=== PATIENT | female | born 1990 | race African-American/Black ===

== ENCOUNTER 2017-05-24 10:02 | Emergency (ER) | payer BC ==
[~2017-05-24] VITALS: Ht 149.9 cm; Wt 49.8 kg
[2017-05-24 11:09] LABS: HEMATOCRIT 39.6 % (36.0-46.0); MCH 24.5 PG (29.0-34.0); MCHC 30.6 G/DL (30.0-36.0); MCV 80.2 FL (83-99); PLATELET COUNT 340 K/uL (156-360); RBC DIS.WIDTH-CV 17.9 % (11.8-14.6); RBC DIS.WIDTH-SD 51.8 % (39-53); RED BLOOD COUNT 4.94 M/uL (3.80-5.20); WHITE BLOOD COUNT 4.1 K/uL (4.1-10.2)
[2017-05-24 11:22] LABS: CHLORIDE 102 mEq/L (99-109); POTASSIUM 3.6 mEq/L (3.7-5.4); SODIUM 138 mEq/L (136-147)
[2017-05-24 11:24] LABS: GLUCOSE 96 mg/dL (70-99)
[2017-05-24 11:26] LABS: ANION GAP 10 MEQ/L (2-14)
[2017-05-24 11:28] LABS: GFR ESTIMATE (CALCULATED) > 59 mL/min/; UREA NITROGEN (BUN) 5 mg/dL (9-23)
[2017-05-24 11:30] LABS: TROP-I INTERPRETATION NEGATIVE; TROPONIN-I < 0.01 ng/mL (0.0-0.30)
[2017-05-24 11:37] LABS: D-DIMER ELISA < 150.00 ng/mLDDU (<230)
[2017-05-24 11:43] LABS: QUANTITATIVE HCG < 4.0 MIU/ML
[2017-05-24 12:08] VITALS: BP 150/93
== END 2017-05-24 12:14 | disposition home or self-care (01) ==
LOC: EME 10:02
DX: R03.0 Elevated blood-pressure reading, without diagnosis of hypertension (principal); R42 Dizziness and giddiness; R25.1 Tremor, unspecified; Z88.0 Allergy status to penicillin
CPT/HCPCS: 71020; 80048; 84484; 84702; 85027; 85379; 93005; 99281; 99284